=== PATIENT | female | born 1995 | race Caucasian/White ===

== ENCOUNTER 2017-09-19 13:46 | Emergency (ER) | payer BC ==
--- NOTE | 2017-09-19 13:55 | PDOC ---
History of Present Illness <Judith Saez - Last Filed: 09/19/17 14:04> - History of Present Illness Initial Comments: 09/19/17 14:16 Patient is a 21 F with no significant PMHx, who presents today after a speaker fell onto her head last night. Patient states the speaker was approximately 1 by 2 ft and that it grazed her head. She denies loc. She states yesterday she developed a contusion at the site of impact as well as a headache. She denies neck pain, nausea, vomiting. She was able to continue her evening, applied iced to the affected area. She is here today because her mother is concerned of possible brain hemorrhaging. Patient states that her headache has resolved and the swelling has substantially decreased. <Bia Trujillo - Last Filed: 09/19/17 14:18> - General Chief Complaint: Injury Stated Complaint: SPEAKER FELL ON HEAD Time Seen by Provider: 09/19/17 13:55 Past History <Judith Saez - Last Filed: 09/19/17 14:04> <Bia Trujillo - Last Filed: 09/19/17 14:18> - Past Medical History Allergies/Adverse Reactions: Allergies Allergy/AdvReac Type Severity Reaction Status Date / Time No Known Allergies Allergy Verified 09/19/17 13:48 Home Medications: Ambulatory Orders Norgestimate-Ethinyl Estradiol [Previfem Tablet] 1 each PO DAILY 09/19/17 Review of Systems - Review of Systems Comments:: 09/19/17 14:16 GENERAL/CONSTITUTIONAL: No fever or chills. No weakness. HEAD, EYES, EARS, NOSE AND THROAT: No change in vision. No ear pain or discharge. No sore throat. CARDIOVASCULAR: No chest pain or shortness of breath. RESPIRATORY: No cough, wheezing, or hemoptysis. GASTROINTESTINAL: No nausea, vomiting, diarrhea or constipation. GENITOURINARY: No dysuria, frequency, or change in urination. MUSCULOSKELETAL: No joint or muscle swelling or pain. No neck or back pain. SKIN: + mild swelling on right frontal scalp. No rash NEUROLOGIC: +headache (yesterday), no vertigo, loss of consciousness, or change in strength/sensation. ENDOCRINE: No increased thirst. No abnormal weight change. HEMATOLOGIC/LYMPHATIC: No anemia, easy bleeding, or history of blood clots. ALLERGIC/IMMUNOLOGIC: No hives or skin allergy. <Bia Trujillo - Last Filed: 09/19/17 14:18> *Physical Exam - Vital Signs Last Vital Signs Temp Pulse Resp BP Pulse Ox 98.2 F 72 20 129/87 98 09/19/17 13:47 09/19/17 13:47 09/19/17 13:47 09/19/17 13:47 09/19/17 13:47 - Physical Exam Comments: 09/19/17 14:17 GENERAL: Awake, alert, and fully oriented, in no acute distress HEAD: Mild tenderness to right frontal scalp. EYES: PERRLA, EOMI, sclera anicteric, conjunctiva clear ENT: Auricles normal inspection, hearing grossly normal, nares patent, oropharynx clear without exudates. Moist mucosa NECK: Normal ROM, supple, no lymphadenopathy, JVD, or masses LUNGS: Breath sounds equal, clear to auscultation bilaterally. No wheezes, and no crackles HEART: Regular rate and rhythm, normal S1 and S2, no murmurs, rubs or gallops ABDOMEN: Soft, nontender, normoactive bowel sounds. No guarding, no rebound. No masses EXTREMITIES: Normal range of motion, no edema. No clubbing or cyanosis. No cords, erythema, or tenderness NEUROLOGICAL: Cranial nerves II through XII grossly intact. Normal speech, normal gait SKIN: Warm, Dry, normal turgor, no rashes or lesions noted. <Bia Trujillo - Last Filed: 09/19/17 14:18> *DC/Admit/Observation/Transfer - Discharge Dispostion Admit: No <Judith Saez - Last Filed: 09/19/17 14:04> - Attestations Scribe Attestion: 09/19/17 14:18 Documentation prepared by Bia Trujillo, acting as phlebotomist medical lab assistant for Judith Saez MD, . <Bia Trujillo - Last Filed: 09/19/17 14:18> Diagnosis at time of Disposition: Contusion of head Qualifiers: Encounter type: initial encounter Contusion of head detail: scalp Qualified Code(s): S00.03XA - Contusion of scalp, initial encounter - Discharge Dispostion Disposition: HOME Condition at time of disposition: Good - Patient Instructions Printed Discharge Instructions: DI for Closed Head Injury Additional Instructions: return to the ED for confusion, seizures, passing out, severe headache, persistent nausea and vomiting, other new or worsening symptoms.
[2017-09-19 13:58] VITALS: BP 129/87; PULSE 72; TEMP 98.2; BMI 24.2
== END 2017-09-19 14:12 | disposition home or self-care (01) ==
LOC: FER 13:46
DX: S00.03XA Contusion of scalp, initial encounter (principal); W20.8XXA Other cause of strike by thrown, projected or falling object, initial encounter; Y93.89 Activity, other specified; Y92.9 Unspecified place or not applicable
CPT/HCPCS: 99282-25